=== PATIENT | male | born 1960 | race African-American/Black ===

== ENCOUNTER 2023-04-04 15:32 | Emergency (ER) | payer MEDICARE, MEDICAID ==
[~2023-04-04] VITALS: Ht 175.3 cm; Wt 90.0 kg
[2023-04-04 16:00] VITALS: BP 120/96; O2SAT 97
[2023-04-04 16:38] LABS: BASOPHILS % 0.6 % (0.0-2.0); HEMATOCRIT. 40.7 % (42.0-52.0); HEMOGLOBIN. 13.7 g/dL (14.0-18.0); LYMPHOCYTES % 21.2 % (20.0-50.0); MEAN CORPUSCULAR HGB CONC 33.8 g/dL (31.0-37.0); MEAN CORPUSCULAR VOLUME 88.8 fL (80.0-94.0); MEAN PLATELET VOLUME 7.6 fl (7.4-10.4); MONOCYTES % 9.7 % (2.0-8.0); NEUTROPHILS % 64.5 % (40.0-76.0); PLATELET 219 x1000/uL (130-400); RED BLOOD CELL COUNT 4.58 mill/uL (4.7-6.1); RED CELL DISTRIBUTION WIDTH 13.1 % (11.6-14.6); WHITE BLOOD COUNT 6.8 x1000/uL (4.5-11.0)
[2023-04-04 16:57] LABS: CHLORIDE 106 mEq/L (98-107); INDEX HEMOLYSI 1 (1-3); INDEX ICTERIC 1 (1-4); INDEX LIPEMIC 1 (1-3); POTASSIUM 3.9 mEq/L (3.5-5.1); SODIUM 137 mEq/L (136-145)
[2023-04-04 16:58] LABS: INDEX HEMOLYSI 2 (1-3)
[2023-04-04 17:08] LABS: AMMONIA 11 uMol/L (<32)
[2023-04-04 17:17] LABS: ALANINE AMINOTRANSFERASE 93 IU/L (13-61); ALBUMIN 3.2 g/dL (3.4-5.0); ASPARTATE AMINOTRANSFERASE 174 IU/L (15-37); BILIRUBIN TOTAL 0.3 mg/dL (0.1-1.0); CALCIUM 8.9 mg/dL (8.5-10.1); CARBON DIOXIDE 32 mEq/L (21-32); CREATININE 1.4 mg/dL (0.6-1.3); ETHANOL BLOOD < 10 mg/dL (-10); GLUCOSE 100 mg/dL (70-105); PROTEIN TOTAL 6.8 g/dL (6.0-8.3); UREA NITROGEN BLOOD 25 mg/dL (7-21)
[2023-04-04 17:30] LABS: CREATINE KINASE 6742 IU/L (39-308)
[2023-04-04 20:24] VITALS: PULSE 77; RESP 16; TEMP 98.3
== END 2023-04-04 20:25 | disposition home or self-care (01) ==
LOC: ER 15:32
DX: R68.89 Other general symptoms and signs (principal)
CPT/HCPCS: 36415; 80053; 80320; 82140; 82550; 85025; 99283; G0480